=== PATIENT | female | born 1975 | race Caucasian/White ===

== ENCOUNTER 2018-06-19 09:04 | Inpatient (IN) | payer MEDICAID ==
--- NOTE | 2018-06-17 16:30 | Pre-op HX & Phy Repo 2 SIG ---
DATE OF ADMISSION: 06/19/2018 PREOPERATIVE HISTORY AND PHYSICAL Scheduled for outpatient surgery 06/19/2018. HISTORY OF PRESENT ILLNESS: The patient is a 43-year-old female in overall good health with invasive ductal carcinoma of the left breast and metastatic to left axillary lymph node. The patient presented in October 2017 with a left breast mass in the upper outer quadrant measuring 2 cm and located 12 cm from the nipple. Core biopsy revealed invasive ductal carcinoma and core biopsy of an abnormal left axillary lymph node revealed metastatic carcinoma. The tumor was estrogen and progesterone receptor positive and Her2 negative. The patient received neoadjuvant chemotherapy and is now scheduled to undergo left breast partial mastectomy with left axillary lymph node dissection. PAST HISTORY MEDICATIONS: Gabapentin p.r.n., Ambien p.r.n., Lexapro 20 mg daily. ALLERGIES TO MEDICATIONS: None. OPERATIONS: In the past, none. REVIEW OF SYSTEMS: 0, para 0. History of depression. FAMILY HISTORY: No family history of breast cancer. PHYSICAL EXAMINATION: GENERAL: The patient is 5 feet. Approximately 204 pounds. VITAL SIGNS: Within normal limits. LUNGS: Clear. HEART: Regular rhythm. BREASTS: Right breast is unremarkable. Left breast reveals a mass in the upper outer quadrant at 2 o'clock near the periphery of the left breast. There is no palpable axillary or supraclavicular lymphadenopathy. There is a right subcutaneous infusion port in the right side, which has been done twice. ABDOMEN: Soft. PELVIC AND RECTAL: Per primary care. EXTREMITIES: Without edema. NEUROLOGIC: Physiologic. IMPRESSION: 1. Invasive ductal carcinoma, left breast. 2. Metastatic to left axillary lymph node, status post neoadjuvant chemotherapy. PLAN: I have had a full discussion with the patient regarding the nature of her condition, the nature of the surgery, indications, alternatives, options, and risks including bleeding, infection, injury to adjacent structures or organs, scarring, distortion of the breast contour, appearance, size or shape, need for additional surgery based on final pathology, need for additional treatment including radiation therapy and possible chemotherapy, etc. All questions have been answered. She understands and agrees to proceed. Mariano Hernandes M.D. DR: Cayla JOB#: [id number] CC:
[2018-06-19] VITALS (12 sets, daily range): BP systolic 91–135; BP diastolic 55–95
[~2018-06-19] VITALS: Ht 157.5 cm; Wt 91.6 kg
[2018-06-19] MEDS ORDERED: GABAPENTIN300 MG ORAL (09:49)
[2018-06-19] MEDS ORDERED: LEXAPRO20 MG ORAL (09:49)
--- NOTE | 2018-06-19 09:54 | Pre-Procedure Note/Attestation ---
Pre-Procedure Note/Attestation Complete Prior to Procedure Planned Procedure: left Procedure Narrative: left breast partial mastectomy and left axillary lymph node dissection Indications for Procedure Pre-Operative Diagnosis: invasive ductal carcinoma left breast with axillary lymph node metastasis Attestation I attest that I discussed the nature of the procedure; its benefits; risks and complications; and alternatives (and the risks and benefits of such alternatives ), prior to the procedure, with the patient (or the patient's legal indirect sales representative). I attest that, if there was a reasonable possibility of needing a blood transfusion, the patient (or the patient's legal indirect sales representative) was given the [facility] standardized written summary, pursuant to the [place] Blood Safety Act ([place] Health and Safety Code # 1645, as amended). I attest that I re-evaluated the patient just prior to the surgery and that there has been no change in the patient's H&P, except as documented below:none Mariano Hernandes MD Jun 19, 2018 09:54
[2018-06-19] MEDS ORDERED: Lidocaine 1% 10mg/ml/Epi 0.005mg/ml 30ml vial INJ ONE (10:24)
[2018-06-19] MEDS ORDERED: Bupivacaine w/Epi 0.5% 30ml Vial INJ ONE (10:24)
[2018-06-19] MEDS ORDERED: Bacitracin 50000 Units Vial ONE (10:24)
[2018-06-19] MEDS ORDERED: NeoSporin Gu Irrig 1ml Amp IRRIG ONE (10:24)
[2018-06-19] MEDS ORDERED: Midazolam 2mg/2ml Inj ONE (10:46)
[2018-06-19] MEDS ORDERED: fentaNYL 100 mcg/2 mL IV ONE (10:46)
[2018-06-19] MEDS ORDERED: Lidocaine 1% MPF 10mg/ml 5ml ONE (10:47)
[2018-06-19] MEDS ORDERED: Ketorolac 30mg Inj ONE (10:47)
[2018-06-19] MEDS ORDERED: Propofol 200mg/20ml IV ONE (10:47)
[2018-06-19] MEDS ORDERED: Zemuron 50mg/5ml Inj IV ONE (10:57)
[2018-06-19] MEDS ORDERED: Sterile Water Irrig 1000ml IRRIG ONE (11:00)
[2018-06-19] MEDS ORDERED: LR 1000ml ONE (11:00)
[2018-06-19] MEDS ORDERED: NS Irrig 1000ml ONE (11:00)
--- NOTE | 2018-06-19 11:44 | Anethesia Preoperative Eval ---
Anesthesia Pre-op PMH/ROS General Date of Evaluation: Jun 19, 2018 Time of Evaluation: 10:56 Anesthesiologist: Josemanuel ASA Score: ASA 2 Mallampati Score Class I : Soft palate, uvula, fauces, pillars visible Class II: Soft palate, uvula, fauces visible Class III: Soft palate, base of uvula visible Class IV: Only hard plate visible Mallampati Classification: Class II Surgeon: Greta Diagnosis: L breast CA Surgical Procedure: L breast partial mastectomy Anesthesia History: none Family History: no anesthesia problems Allergies: Coded Allergies: No Known Allergies (Unverified , 06/18/18) Medications: see eMAR Patient NPO?: Yes NPO Date: Jun 18, 2018 NPO Time: 1900 Past Medical History Cardiovascular: Denies: HTN, CAD, CT, valve dz, arrhythmia, other Pulmonary: Denies: asthma, COPD, [place], other Gastrointestinal/Genitourinary: Reports: GERD - mild; Denies: CRI, ESRD, other Neurologic/Psychiatric: Reports: depression/anxiety; Denies: dementia, CVA, TIA, other Endocrine: Denies: DM, hypothyroidism, steroids, other HEENT: Denies: cataract (L), cataract (R), glaucoma, [place] (L[place] (R), other Hematology/Immune: Reports: anemia - mild; Denies: DVT, bleeding disorder, other Musculoskeletal/Integumentary: Denies: OA, RA, DJD, DDD, edema, other Other: obesity PMH Narrative: as above PSxH Narrative: Dental Sx, infusaport placement Anesthesia Pre-op Phys. Exam Physician Exam Last Vital Signs Date Time Temp Pulse Resp B/P (MAP) Pulse Ox O2 Delivery O2 Flow Rate FiO2 06/19/18 09:55 Room Air 06/19/18 09:50 98.3 81 18 135/78 (97) 96 Constitutional: NAD Neurologic: CN 2-12 intact Cardiovascular: RRR, no M/R/G Respiratory: CTA Gastrointestinal: other - obesuty Airway Exam Mallampati Score: Class II MO: full Neck: short ROM: full Teeth: intact Dentures: no upper, no lower Anesthesia Pre-op A/P Labs see chart Urine Test Test 06/19/18 09:35 Urine HCG, Qualitative Negative (NEGATIVE) Studies Pre-op Studies: EKG - NSR Risk Assessment & Plan Assessment: ASA 2 Plan: GA with ETT PONV prevention Status Change Before Surgery: No Pre-Antibiotics Drug: Ancef 2gr. Given Within 1 Hr of Incision: Yes Time Given: 11:22 Donavan Abernathy MD Jun 19, 2018 11:44
[2018-06-19] MEDS ORDERED: Metoclopramide 10mg/2ml Inj IVP PRN (11:45)
[2018-06-19] MEDS ORDERED: fentaNYL 100 mcg/2 mL IV PRN (11:45)
[2018-06-19] MEDS ORDERED: Meperidine 50mg/ml Inj(FOR RIGORS ONLY) IV PRN (11:45)
[2018-06-19] MEDS ORDERED: DiphenhydrAMINE 50mg/ml Inj IVP PRN (11:45)
[2018-06-19] MEDS ORDERED: LR 1000ml 1,000 ML IVLG SCH (11:45)
[2018-06-19] MEDS ORDERED: Ketorolac 30mg Inj IV PRN (11:45)
[2018-06-19] MEDS ORDERED: Midazolam 2mg/2ml Inj IVP PRN (11:45)
[2018-06-19] MEDS ORDERED: Morphine Sulfate 10mg/ml Inj ONE (11:52)
[2018-06-19] MEDS ORDERED: Glycopyrrolate 0.2mg/ml 1ml Vial ONE (11:53)
[2018-06-19] MEDS ORDERED: Sodium Chloride 10ml vial INJ ONE (11:53)
--- NOTE | 2018-06-19 13:26 | Immediate Post-Op Evaluation ---
Immediate Post-Op Evalulation Immediate Post-Op Evalulation Procedure: L partial mastecftomy with axillary l/n dissection Date of Evaluation: Jun 19, 2018 Time of Evaluation: 13:25 IV Fluids: 1200 Blood Products: none Estimated Blood Loss: <50 Urinary Output: none Blood Pressure Systolic: 125 Blood Pressure Diastolic: 78 Pulse Rate: 102 Respiratory Rate: 20 O2 Sat by Pulse Oximetry: 98 Temperature (Fahrenheit): 97.8 Pain Score (1-10): 2 Nausea: No Vomiting: No Complications none Patient Status: awake, patent, extubated, none Hydration Status: adequate Donavan Abernathy MD Jun 19, 2018 13:26
--- NOTE | 2018-06-19 13:27 | Brief Operative Note ---
Immediate Post Operative Note Operative Note Pre-op Diagnosis: invasive ductal carcinoma left breast with axillary lymph node metastasis Procedure: left breast partial mastectomy and left axillary lymph node dissection Post-op Diagnosis: same Post-op Diagnosis: same as pre-op Findings: consistent w/pre-op dx studies Surgeon: karely Anesthesiologist: louis Anesthesia: general Specimen: yes - left breast partial mastectomy, left axillary lymph nodes Complications: none Condition: stable Fluids: see anesthesia record Estimated Blood Loss: minimal Drains: TRAVON Implant(s) used?: No Mariano Hernandes MD Jun 19, 2018 13:27
--- NOTE | 2018-06-19 14:15 | NUR ---
NURSE NOTES: Received report from Violeta RN. Patient arrived to unit at 1400 via bed. No s/s acute distress. On 2L NC. Awake alert and oriented x4. Patient reporting no pain at this time. Dressing assessed c/d/i. Per report, patient will bring own bra when ready to ambulate, surgical bra provided by hospital does not fit patient. IV running KVO IVF, IV asymptomatic. SCD's in place. Side rails upx2, bed low and locked, call light in reach. Will continue to monitor.
[2018-06-19] MEDS ORDERED: Norco 5mg/325mg tab ORAL PRN (15:30)
[2018-06-19] MEDS: D5 1/2NS w/KCl 20mEq 1,000 ML IV SCH (16:42)
[2018-06-19] MEDS: ceFAZolin 2gm/50ml Premix 50 ML IV SCH (18:38)
--- NOTE | 2018-06-19 19:45 | NUR ---
NURSE NOTES: Received report from KELSI Jacobson and rounds done. Received pt in bed, A&OX4, denies pain, surgical dressing C/D/I. TRAVON inplace serosanguinenous output. Bed in low position and locked, side rails up x 2, call light within reach. Will continue to monitor.
--- NOTE | 2018-06-19 19:46 | NUR ---
HAND-OFF: Report given to Tera DOLAN. Patient stable.
--- NOTE | 2018-06-19 20:00 | Operative Note - Dictated ---
DATE OF OPERATION: 06/19/2018 SURGEON: Mariano Hernandes M.D. MOLD PREPARER: None. ANESTHESIOLOGIST: Donavan Abernathy M.D. TYPE OF ANESTHESIA: General endotracheal. PREOPERATIVE DIAGNOSIS: Invasive ductal carcinoma of left breast with metastasis to left axillary lymph node, status post neoadjuvant chemotherapy. POSTOPERATIVE DIAGNOSIS: Invasive ductal carcinoma of left breast with metastasis to left axillary lymph node, status post neoadjuvant chemotherapy. OPERATION PERFORMED: Left breast partial mastectomy with left axillary lymph node dissection. DESCRIPTION OF PROCEDURE: The patient was taken to the operating room and under general anesthesia with sequential compression device stockings in place, she was prepped and draped in usual fashion. The palpable mass was in the upper outer quadrant of the left breast near the periphery. A curvilinear incision was made achieving hemostasis with cautery. Flaps were dissected circumferentially. The partial mastectomy was accomplished and the specimen oriented with suture markers anterior, superior, and medial. The pathologist inspected the tissue and found that the lesion was completely resected with satisfactory margins. After ascertaining that hemostasis was secured, incision was closed with interrupted 2-0 and 3-0 Vicryl deep dermal subcutaneous sutures followed by continuous 4-0 Monocryl subcuticular suture. Attention was then directed to the left axilla where curvilinear incision was made achieving hemostasis with cautery and incising the clavipectoral fascia. The patient is quite obese and initially specimen was removed that was all fat tissue. Then, the deep axilla was entered and using the [employer] electrocautery device axillary dissection performed and the specimen given to the pathologist confirming the presence of multiple lymph nodes. The field was irrigated and hemostasis was seen to be secured. Through a separate stab incision inferolaterally, a 19 mm round Seven drain was placed into the axilla and sutured to the skin with 2-0 nylon suture. The clavipectoral fascia was closed with interrupted 2-0 Vicryl, subcutaneous tissues closed with interrupted 3-0 Vicryl and skin closed with continuous 4-0 Monocryl subcuticular suture. Mastisol and half-inch Steri-Strips were applied to both incisions followed by dry sterile dressing. Final sponge and needle counts were correct. The patient tolerated the procedure well and left the operating room in good condition. Don Daylin Hernandes DR: Cayla JOB#: [id number] CC: MONY
[2018-06-19] MEDS ORDERED: Zolpidem 5mg tab ORAL PRN (21:00)
[2018-06-20] VITALS: BP 109/62
[2018-06-20] MEDS: D5 1/2NS w/KCl 20mEq 1,000 ML IV SCH (00:28)
[2018-06-20] MEDS: ceFAZolin 2gm/50ml Premix 50 ML IV SCH (02:58)
[2018-06-20 04:00] VITALS: BP 104/61
--- NOTE | 2018-06-20 07:25 | NUR ---
HAND-OFF: Report given to KELSI Jacobson. Pt in stable condition.
--- NOTE | 2018-06-20 07:28 | NUR ---
NURSE NOTES: Received report from Tera DOLAN. On rounds, patient is asleep. No s/s acute distress noted, RR even and unlabored. IV heplocked per order. TRAVON compressed. SCD's in place. Side rails upx2, bed low and locked, call light in reach. Will continue to monitor.
[2018-06-20] MEDS ORDERED: AMBIEN5 MG ORAL (07:51)
[2018-06-20 08:00] VITALS: BP 85/56
--- NOTE | 2018-06-20 08:15 | NUR ---
NURSE NOTES: Informed Dr. Hernandes that patient's blood pressure is running low. MD aware and states to continue to monitor and encourage IS use. Will follow through per order and continue to monitor.
--- NOTE | 2018-06-20 08:24 | General Progress Note ---
Progress Note Progress Note Afebrile, BP low with mild tachycardia and confusion - likely a reaction to [place]. (past history of drug abuse 15 years ago) Left breast and axilla incisions are clean with intact steristrips TRAVON 42cc serosang Imp. confusion mild hypotension but stable Plan: D/C [place] and Dilaudid Ibuprofen + Tylenol prn pain Keep in hospital today to monitor VS, mental status, ability to ambulate independently Mariano Hernandes MD Jun 20, 2018 08:24
--- NOTE | 2018-06-20 08:41 | 48 Hour Post Anesthesia Eval ---
Post Anesthesia Evaluation Procedure: L partial mastecftomy with axillary l/n dissection Date of Evaluation: Jun 20, 2018 Time of Evaluation: 08:39 Blood Pressure Systolic: 104 0: 72 Pulse Rate: 68 Respiratory Rate: 20 Temperature (Fahrenheit): 97.5 O2 Sat by Pulse Oximetry: 98 Airway: patent Nausea: No Vomiting: No Pain Intensity: 3 Hydration Status: adequate Cardiopulmonary Status: stable Mental Status/LOC: patient returned to baseline Follow-up Care/Observations: n/a Post-Anesthesia Complications: none Follow-up care needed: ready to discharge Donavan Abernathy MD Jun 20, 2018 08:41
[2018-06-20 12:00] VITALS: BP 103/69
[2018-06-20 16:00] VITALS: BP 139/78
--- NOTE | 2018-06-20 19:45 | NUR ---
NURSE NOTES: Received report from KELSI Jacobson. Received pt lying in bed, A&OX4, denies pain at this time. No distress noted. Surgical dressing C/D/I. TRAVON in-place compressed. SCD's in place. Bed in low position and locked, side rails up x 2, call light with reach. Will continue to monitor.
--- NOTE | 2018-06-20 19:56 | NUR ---
HAND-OFF: Report given to Tera DOLAN. Patient stable.
[2018-06-20 20:00] VITALS: BP 96/63
[2018-06-21] VITALS: BP 100/62
[2018-06-21 04:00] VITALS: BP 140/72
--- NOTE | 2018-06-21 07:29 | NUR ---
HAND-OFF: Report given to KELSI Alonzo. Pt in stable condition.
--- NOTE | 2018-06-21 07:45 | NUR ---
NURSE NOTES: WALKING ROUNDS DONE WITH OUTGOING RN. PATIENT AWAKE IN BED. QUESTIONS ANSWERED.NEED MET. LEFT BREAST SURGICAL SITE C/D/I.[facility] WNL. DISCUSSED PLAN OF CARE FOR THE DAY. VERBALIZED UNDERSTANDING. CALL LIGHT WITHIN REACH.
[2018-06-21 08:00] VITALS: BP 126/78
--- NOTE | 2018-06-21 09:02 | General Progress Note ---
Progress Note Progress Note AVSS doing much better with ibuprofen for pain left breast and axilla incisions clean. TRAVON drain 43cc serosang Imp. doing well Plan: discharge with drain in place Rx - 0 f/u 06/25 in office Mariano Hernandes MD Jun 21, 2018 09:02
--- NOTE | 2018-06-21 10:20 | NUR ---
NURSE NOTES: REVIEWED AND DEMONSTRATED HOW TO CARE FOR TRAVON DRAIN. RETURN DEMONSTRATION VERY GOOD. SUPPLIES GIVEN WITH EDUCATION AND LOG TO DOCUMENT OUTPUT. ACKNOWLEDGED INSTRUCTIONS. AMBULATED PATIENT AROUND NURSING UNIT. TOLERATED VERY WELL. GAIT STEADY DENIES DIZZINESS. PATIENT READY FOR DISCHARGE.
--- NOTE | 2018-06-21 14:37 | NUR ---
NURSE NOTES: DISCHARGE INSTRUCTIONS REVIEWED WITH PATIENT; PROVIDED TRAVON DRAIN EDUCATION. ALL BELONGINGS RETURNED TO PATIENT.ACKNOWLEDGED INSTRUCTIONS WILL F/U WITH DR. YAÑEZ NEXT WEEK SCHEDULED.
--- NOTE | 2018-06-23 11:56 | Discharge Summary ---
Discharge Summary Hospital Course Date of Admission Jun 19, 2018 at 15:06 Date of Discharge Jun 21, 2018 at 12:40 Admitting Diagnosis Left breast metastatic carcinoma Reason for Hospitalization: surgery HPI Sharon Escobar is a 43 year old female who was admitted on Jun 19, 2018 at 15 :06 for Breast Cancer Procedures s/p 06/19/[address] Hernandes Left breast partial mastectomy with left axillary lymph node dissection. Hospital Course status post surgery initially IV fluids s/p perioperative antibiotics pain management addressed patient had borderline hypotension with mild tachycardia and confusion , probably reaction to [place] ( prior history pf drug abuse 15 years ago) subsequently [place] and Dilaudid were discontinued patient started on ibuprofen and Tylenol as needed TRAVON drain output was closely monitored.; patient was taught drain care and how to empty and measure output left breast and axilla incisions clean with intact Steri-Strips ambulated fall precautions maintained; safe for ambulation tolerated diet , IV fluids discontinued GI prophylaxis provided antiemetics were on board as needed voided freely bowel regimen instituted blood pressure stable, pain controlled, mental status at baseline patient was stable for discharge continue TRAVON drain with close monitoring of output discharge instructions provided follow up with surgeon 06/25 , FINAL DIAGNOSES 1. Invasive ductal carcinoma of left breast with metastasis to left axillary lymph node, status post neoadjuvant chemotherapy. 2. Left breast partial mastectomy with left axillary lymph node dissection. Discharge Medications Continued Medications: Escitalopram Oxalate* (Lexapro*) 20 Mg Tablet 20 MG ORAL DAILY, TAB (This prescription has been renewed) Gabapentin* (Gabapentin*) 300 Mg Capsule 300 MG ORAL TID PRN for EXTREMITY NUMBNESS/TINGLING, CAP Zolpidem Tartrate* (Ambien*) 5 Mg Tablet 5 MG ORAL BEDTIME PRN for Insomnia, TAB (This prescription has been renewed) Discharge Condition Upon Discharge: stable Discharge Disposition Patient was discharged to Home () Discharge Instructions Discharge Instructions Special Instructions I have been assigned to complete a D/C Summary on this account. I was not involved in the patient management Sita Le NP Jun 23, 2018 11:56
== END 2018-06-21 12:40 | disposition home or self-care (01) | DRG 363 ==
LOC: SUR 09:04 → EDBD 11:00 → 3E 15:06
PROC: 07B60ZX Excision of Left Axillary Lymphatic, Open Approach, Diagnostic (ICD-10-PCS; 2018-06-19)
PROC: 0HBU0ZZ Excision of Left Breast, Open Approach (ICD-10-PCS; principal; 2018-06-19 11:00)
DX: C50.412 Malignant neoplasm of upper-outer quadrant of left female breast (principal); C77.3 Secondary and unspecified malignant neoplasm of axilla and upper limb lymph nodes; Z17.0 Estrogen receptor positive status [ER+]; F32.9 Major depressive disorder, single episode, unspecified; E66.9 Obesity, unspecified; I95.2 Hypotension due to drugs; R00.0 Tachycardia, unspecified; T40.2X5A Adverse effect of other opioids, initial encounter; Z68.37 Body mass index [BMI] 37.0-37.9, adult
CPT/HCPCS: 81025; 87081; 93005; 94003; 94150; J2250; J2405

== ENCOUNTER 2019-11-14 21:04 | Emergency (ER) | payer MEDICAID ==
[~2019-11-14] VITALS: Ht 154.9 cm; Wt 88.5 kg
[~2019-11-14 21:04] MED LIST: AMBIEN5 MG ORAL; GABAPENTIN300 MG ORAL; LEXAPRO20 MG ORAL
[2019-11-14] MEDS ORDERED: EFFEXOR XR150 MG ORAL (21:21)
[2019-11-14] MEDS ORDERED: FLAGYL500 MG ORAL (21:21)
--- NOTE | 2019-11-14 21:21 | NUR ---
ED Nurse Note: PT walked in to ED for C/O fever since 17oo today. pt reorts her fever was around 101f at home. temp at triage is 98.6. pt has taken tylenol at home prior to coming to ed.
[2019-11-14 21:22] VITALS: BP 120/86
--- NOTE | 2019-11-14 21:48 | NUR ---
ED Nurse Note: PT denies any cough, sob at this time. pt reports she has been taking metronidazole 500 mg for baterial vaginosis.
--- NOTE | 2019-11-14 22:07 | Emergency Room Report ---
History of Present Illness General Chief Complaint: Fever Source: Patient Present Illness HPI Disclaimer: Please note that this report is being documented using DRAGON technology. This can lead to erroneous entry secondary to incorrect interpretation by the dictating instrument. HPI: 44-year-old female presents for evaluation of fever. She reported increasing temperatures throughout the day from 99 then 101 101. Yesterday she had episode of diarrhea and diffuse pelvic cramping but denies nausea or vomiting. Denied chest pain, palpitations, cough. She had a slight episode of shortness of breath but states this resolved. She is complaining of fatigue and a headache. She took Tylenol prior to arrival and fevers are now resolved. She has no complaints at this time. She was started on Flagyl for presumed bacterial vaginosis few days ago by her PMD. She was not tested but treated empirically because her PMD could not see her due to COVID-19 closing the office. Denies dysuria, hematuria discharge currently. PMH: Breast cancer PSH: Partial mastectomy Allergies: None reported Social Hx: Denies alcohol or drug use Allergies: Coded Allergies: No Known Allergies (Unverified , 06/18/18) COVID-19 Screening Contact w/high risk pt: No Recent Travel to affected area: No Experienced COVID-19 symptoms?: Yes COVID-19 symptoms experienced: Fever (T>100.4F or >38C) COVID-19 Testing performed HOME SERVICE ADVISOR: No Patient History Now: No Nursing Documentation-PMH Past Medical History: No History, Except For Hx Cardiac Problems: No Hx Cancer: Yes Hx Gastrointestinal Problems: No Hx Neurological Problems: No Review of Systems All Other Systems: negative except mentioned in HPI Physical Exam Vital Signs Date Time Temp Pulse Resp B/P (MAP) Pulse Ox O2 Delivery O2 Flow Rate FiO2 11/14/19 21:18 98.6 100 14 122/82 (95) 98 Room Air General: Awake and alert afebrile HEENT: NC/AT. EOMI. Cardiovascular: RRR. S1 and S2 normal. No murmur appreciated Resp: Normal work of breathing. No cough, wheezing or crackles appreciated Abdomen: Abdomen is soft, nondistended. Nontender Skin: Intact. No abrasions, laceration or rash over the exposed skin MSK: Normal tone and bulk. Moving all extremities. No obvious deformity. Neuro: Awake and alert. Mentating appropriately. Medical Decision Making Diagnostic Impression: Primary Impression: Diarrhea Additional Impressions: Fever Suspected 2019 novel coronavirus infection ER Course 44-year-old female presents for evaluation of fever and fatigue. Differential includes resolving to viral syndrome, pneumonia, bronchitis, COVID-19 infection , UTI, medication side effect, gastroenteritis, enterocolitis to name a few. She is well-appearing, afebrile, physical exam is reassuring and currently has no complaints. Chest x-ray does not show an obvious consolidation and urinalysis did not show evidence of an acute urinary tract infection. Patient remains afebrile and well-appearing. She will follow-up with outpatient COVID- 19 testing and follow-up with her PMD. Instructed to finish the course of Flagyl as she states her initial symptoms had improved after starting it. Can return to the emergency department new or worsening symptoms. She understands and agrees with treatment plan. Laboratory Tests Test 11/14/19 22:12 Urine Color Pale yellow Urine Appearance Clear Urine pH 8 (4.5-8.0) Urine Specific [place] 1.010 (1.005-1.035) Urine Protein Negative (NEGATIVE) Urine Glucose (UA) Negative (NEGATIVE) Urine Ketones Negative (NEGATIVE) Urine Blood Negative (NEGATIVE) Urine Nitrite Negative (NEGATIVE) Urine Bilirubin Negative (NEGATIVE) Urine Urobilinogen Normal MG/DL (0.0-1.0) Urine Leukocyte Esterase Trace (NEGATIVE) H Urine RBC 0-2 /HPF (0 - 2) Urine WBC 0-2 /HPF (0 - 2) Urine Squamous Epithelial Cells Few /LPF (NONE/OCC) Urine Bacteria Few /HPF (NONE) Chest X-Ray Diagnostic Results Chest X-Ray Diagnostic Results : Chest X-Ray Ordered: Yes # of Views/Limited/Complete: 1 View Indication: Shortness of Breath EP Interpretation: Yes Interpretation: no consolidation, no effusion, no pneumothorax, no acute cardiopulmonary disease Impression: No acute disease Electronically Signed by: Electronically signed by Dr. Rajinder Kruse CT/MRI/US Diagnostic Results CT/MRI/US Diagnostic Results : Impression Final Report EXAM: XR Chest, 1 View CLINICAL HISTORY: SOB TECHNIQUE: Frontal view of the chest. COMPARISON: None FINDINGS: Lungs: Unremarkable. No consolidation. Pleural space: Unremarkable. No pneumothorax. Heart: Unremarkable. No cardiomegaly. Mediastinum: Unremarkable. Bones/joints: Unremarkable. Upper abdomen: The left hemidiaphragm is minimally elevated. IMPRESSION: No acute cardiopulmonary process. Radiologist: Courtney Leblanc MD Electronically Signed: 11/14/19 22:54 Study ready at 22:46 and initial results transmitted at 22:54 Last Vital Signs Date Time Temp Pulse Resp B/P (MAP) Pulse Ox O2 Delivery O2 Flow Rate FiO2 11/14/19 21:22 97 16 Room Air 11/14/19 21:22 98.6 120/86 98 Disposition: HOME, SELF-CARE Condition: Stable Referrals: NON PHYSICIAN (PCP) Rajinder Kruse MD Nov 14, 2019 22:07
--- NOTE | 2019-11-14 22:20 | NUR ---
ED Nurse Note: urine sample colleted and sent to lab .
[2019-11-14 22:41] LABS: APPEARANCE,URINE CLEAR; BILIRUBIN, URINE NEGATIVE (NEGATIVE); COLOR,URINE PALE YELLOW; GLUCOSE, URINE (UA) NEGATIVE (NEGATIVE); KETONES,URINE NEGATIVE (NEGATIVE); NITRITE,URINE NEGATIVE (NEGATIVE); PH,URINE 8 (4.5-8.0); PROTEIN,URINE NEGATIVE (NEGATIVE); UROBILINOGEN,URINE NORMAL MG/DL (0.0-1.0)
[2019-11-14 22:52] LABS: LEUKOCYTE ESTERASE ,URINE TRACE (NEGATIVE)
--- NOTE | 2019-11-14 22:54 | Diagnostic Imaging Report ---
EXAM: XR Chest, 1 View CLINICAL HISTORY: SOB TECHNIQUE: Frontal view of the chest. COMPARISON: None FINDINGS: Lungs: Unremarkable. No consolidation. Pleural space: Unremarkable. No pneumothorax. Heart: Unremarkable. No cardiomegaly. Mediastinum: Unremarkable. Bones/joints: Unremarkable. Upper abdomen: The left hemidiaphragm is minimally elevated. IMPRESSION: No acute cardiopulmonary process.
[2019-11-14 23:11] VITALS: BP 128/77
--- NOTE | 2019-11-14 23:11 | NUR ---
ER DISCHARGE NOTE: Patient is cleared to be discharged per ERMD, pt is aox4, on room air, with stable vital signs. pt was given dc and prescription instructions, pt was able to verbalize understanding, pt id band removed without complications. pt is able to ambulate with steady gait. pt took all belongings.
== END 2019-11-14 23:11 | disposition home or self-care (01) ==
LOC: EMR 21:25
DX: R50.9 Fever, unspecified (principal); R19.7 Diarrhea, unspecified; R53.83 Other fatigue; Z90.10 Acquired absence of unspecified breast and nipple; Z85.3 Personal history of malignant neoplasm of breast
CPT/HCPCS: 71045; 81003; Z7502; 99284